=== PATIENT | male | born 2000 | race Caucasian/White ===

== ENCOUNTER 2024-11-22 09:46 | Emergency (ER) | payer OTHER ==
[2024-11-22 09:55] VITALS: BMI 27.4
[2024-11-22 10:51] LABS: ABSOLUTE IMMATURE GRANULOCYTES 0.01 x10^3/uL (0.0-0.031); BASOPHILS # 0.06 x10^3/uL (0.01-0.08); EOSINOPHIL % 1.3 % (0.8-7.0); EOSINOPHILS # 0.08 x10^3/uL (0.04-0.54); HEMATOCRIT 45.8 % (40.1-51.0); HEMOGLOBIN 14.6 g/dL (13.7-17.5); MCHC 31.9 g/dl (32.3-36.5); MEAN CELL VOLUME 90.3 fl (79.0-92.2); MEAN PLT VOLUME 9.7 fl (9.4-12.4); MONOCYTE # 0.63 x10^3/uL (0.30-0.82); MONOCYTE % 9.9 % (5.3-12.2); PLATELET COUNT 276 x10^3/uL (163-337); RDW 12.3 % (11.9-15.3)
[2024-11-22 11:02] LABS: INR 1.13 (0.83-1.09); PROTHROMBIN TIME (PATIENT) 12.3 SEC (9.7-13.0)
[2024-11-22 11:04] LABS: ACTIVATED PTT 29.3 SECONDS (25.2-36.5)
[2024-11-22 11:06] LABS: PH,URINE 6.5 (5.0-8.0); URINE APPEARANCE CLEAR; URINE BILIRUBIN NEGATIVE (NEGATIVE); URINE COLOR YELLOW; URINE GLUCOSE (UA) NEGATIVE (NEGATIVE); URINE KETONE NEGATIVE (NEGATIVE); URINE LEUK ESTERASE NEGATIVE (NEGATIVE); URINE NITRITE NEGATIVE (NEGATIVE); URINE PROTEIN NEGATIVE (NEGATIVE); URINE UROBILINOGEN 0.2 mg/dL (0.2-1.0)
[2024-11-22] MEDS: ACETAMINOPHEN 1000 MG/100 ML BAG IVPB ONE (11:10)
[2024-11-22] MEDS: ONDANSETRON 4 MG/2 ML VIAL IVPUSH ONE (11:10)
[2024-11-22] MEDS: SODIUM CHLORIDE 1,000 ML IV STA (11:10)
[2024-11-22 11:21] LABS: ALBUMIN 4.6 g/dl (3.4-5.0); CALCIUM 9.8 mg/dL (8.5-10.1)
[2024-11-22 11:22] LABS: BLOOD UREA NITROGEN 10.4 mg/dL (7-18)
[2024-11-22 11:26] LABS: BILIRUBIN,TOTAL 0.8 mg/dL (0.2-1); TOT PROT 8.6 g/dl (6.4-8.2)
[2024-11-22 12:55] LABS: HCV DIAGNOSTIC IN-HOUSE W/RFLX NON-REACTIVE (NONREACTIVE)
[2024-11-22 12:56] LABS: HIV INTERPRETATION NEGATIVE (NEGATIVE)
[2024-11-22 13:51] VITALS: BP 118/60; PULSE 64; RESP 16; TEMP 98.1
== END 2024-11-22 13:40 | disposition home or self-care (01) ==
LOC: JER 09:46
PROC: 3E033NZ Introduction of Analgesics, Hypnotics, Sedatives into Peripheral Vein, Percutaneous Approach (ICD-10-PCS; principal; 2024-11-22)
PROC: 3E033GC Introduction of Other Therapeutic Substance into Peripheral Vein, Percutaneous Approach (ICD-10-PCS; 2024-11-22)
PROC: 3E0337Z Introduction of Electrolytic and Water Balance Substance into Peripheral Vein, Percutaneous Approach (ICD-10-PCS; 2024-11-22)
DX: K52.9 Noninfective gastroenteritis and colitis, unspecified (principal); R11.2 Nausea with vomiting, unspecified; R63.0 Anorexia; R10.31 Right lower quadrant pain; R10.33 Periumbilical pain
CPT/HCPCS: 0241U-QW; 36415; 74177-TC; 80053; 81003; 83690; 85025; 85610; 85730; 86803; 86850; 86900; 86901; 87389; 99285-25; J0131; Q9967